=== PATIENT | male | born 1980 | race Caucasian/White ===

== ENCOUNTER → 2018-08-04 | Outpatient (CLI) | payer OTHER ==
[~2018-08-04] MED LIST: AMOCLA875 PO; Bactrim Ds Tab1 EACH PO; CEPH500 PO; CETI10 PO; CLIN300 PO; CRUTCH4 USE; CYCL10 PO; DESO.25TC TOP; DIPH50 PO; HYDACE5 PO; IBUP800 PO; Mobic15 MG PO; PENVK500; PENVK500 PO; Percocet 5-3251 EACH PO; SULTRIDS PO; ZIPR20 PO; ZIPR60; ZIPR60 PO
== END | disposition home or self-care (01) ==
LOC: LAB EV 17:56 → LAB SHORT 17:56
DX: L02.411 Cutaneous abscess of right axilla (principal)
CPT/HCPCS: 87070; 87077; 87147; 87186; 87205

== ENCOUNTER 2018-11-04 20:10 | Emergency (ER) | payer OTHER ==
[~2018-11-04] VITALS: Ht 185.4 cm; Wt 86.2 kg
[2018-11-04] MEDS ORDERED: Bactrim Ds Tab1 EACH PO (21:17)
== END 2018-11-04 21:32 | disposition home or self-care (01) ==
LOC: ER 20:10
DX: L02.411 Cutaneous abscess of right axilla (principal); L02.213 Cutaneous abscess of chest wall; F17.210 Nicotine dependence, cigarettes, uncomplicated
CPT/HCPCS: 10060; 99283-25

== ENCOUNTER 2020-10-13 07:20 | Emergency (ER) | payer OTHER ==
[~2020-10-13] VITALS: Ht 177.8 cm; Wt 93.9 kg
[2020-10-13] MEDS ORDERED: LORCET 5-325 M1 EACH PO (07:56)
== END 2020-10-13 10:22 | disposition home or self-care (01) ==
LOC: ER 07:20
DX: S01.512A Laceration without foreign body of oral cavity, initial encounter (principal); F17.210 Nicotine dependence, cigarettes, uncomplicated; Z23 Encounter for immunization; W22.8XXA Striking against or struck by other objects, initial encounter
CPT/HCPCS: 36415; 70486; 90471; 90714; 96365; 96375; 99284-25; J1885; J2270; J2405; J2540

== ENCOUNTER 2021-08-24 19:56 | Emergency (ER) | payer OTHER ==
[~2021-08-24] VITALS: Ht 182.9 cm; Wt 95.2 kg
[~2021-08-24 19:56] MED LIST changes: +LORCET 5-325 M1 EACH PO
[2021-08-24] MEDS ORDERED: HYDR1TAB94 PO (23:37)
== END 2021-08-24 23:40 | disposition home or self-care (01) ==
LOC: ER 19:56
DX: S01.01XA Laceration without foreign body of scalp, initial encounter (principal); R31.9 Hematuria, unspecified; F17.210 Nicotine dependence, cigarettes, uncomplicated; W22.8XXA Striking against or struck by other objects, initial encounter; Y92.9 Unspecified place or not applicable
CPT/HCPCS: 12002; 70450; 99283-25; A9270

== ENCOUNTER 2021-09-03 14:44 | Emergency (ER) | payer OTHER ==
[~2021-09-03] VITALS: Ht 185.4 cm; Wt 99.8 kg
[~2021-09-03 14:44] MED LIST changes: +HYDR1TAB94 PO
== END 2021-09-03 15:05 | disposition home or self-care (01) ==
LOC: ER 14:44
DX: Z48.02 Encounter for removal of sutures (principal); F17.210 Nicotine dependence, cigarettes, uncomplicated
CPT/HCPCS: 99281

== ENCOUNTER 2025-01-29 02:51 | Emergency (ER) | payer OTHER ==
[~2025-01-29] VITALS: Ht 177.8 cm; Wt 90.7 kg
[2025-01-29 03:08] VITALS: BP 137/99
[2025-01-29] MEDS ORDERED: BACTRIM DS TAB1 EAC1 PO (03:59)
[2025-01-29] MEDS ORDERED: Trimethoprim/Sulfamethoxazole DS Tab PO ONE (04:00)
== END 2025-01-29 04:08 | disposition home or self-care (01) ==
LOC: ER 02:51
DX: L03.011 Cellulitis of right finger (principal); F17.210 Nicotine dependence, cigarettes, uncomplicated
CPT/HCPCS: 99283; A9270